=== PATIENT | male | born 1970 | race Caucasian/White ===

== ENCOUNTER 2020-06-10 08:34 | Outpatient (REF) | payer OTHER, SELFPAY | END 2020-06-10 08:35 | disposition home or self-care (01) | LOC: HO.LAB 08:34 | PROVIDERS: Visit Provider Internal Medicine | DX: Z20.822 Contact with and (suspected) exposure to COVID-19 (principal) | CPT/HCPCS: 36415; C9803; U0003 ==

== ENCOUNTER 2020-07-03 09:21 | Outpatient (REF) | payer OTHER, SELFPAY | END 2020-07-03 09:22 | disposition home or self-care (01) | LOC: HO.LAB 09:21 | PROVIDERS: Visit Provider Internal Medicine | DX: Z20.822 Contact with and (suspected) exposure to COVID-19 (principal) | CPT/HCPCS: 36415; C9803; U0003; U0005 ==

== ENCOUNTER 2021-02-26 08:25 | Emergency (ER) | payer OTHER, SELFPAY ==
[2021-02-26 08:29] VITALS: BP 167/93; PULSE 87; RESP 18; TEMP 36.8; O2SAT 99; BMI 22.7
[2021-02-26 09:15] LABS: COVID-19 Test Negative (Negative); IDNOW Serial# 9DD0AD1C; Strep A Nucleic Acid Negative (Negative)
--- NOTE | 2021-02-26 09:23 | ED.GENADULT ---
HPI - General Adult General Chief complaint: Upper Respiratory Symptoms Stated complaint: sore throat Time Seen by Provider: 02/26/21 08:35 Source: patient Mode of arrival: ambulatory Limitations: no limitations History of Present Illness HPI narrative: Patient presents to ED for sore throat and runny nose for 2 weeks. Patient denies any chest pain or shortness of breath. Patient states no fever and chills. Patient had 2 COVID swab that was negative. Related Data Allergies Allergy/AdvReac Type Severity Reaction Status Date / Time No Known Allergies Allergy Verified 02/26/21 08:31 Review of Systems Review of Systems: Yes all other systems are reviewed and are negative Constitutional: Constitutional: Reports as per HPI and Reports no additional constitutional complaints Eyes: Eyes: Reports as per HPI and Reports no additional eye complaints ENT: Reports system reviewed and no additional complaints, except as documented, Reports as per HPI, Reports nasal congestion and Reports sore throat Cardiovascular: Cardiovascular: Reports as per HPI and Reports no additional cardiovascular complaints Respiratory: Respiratory: Reports as per HPI and Reports no additional respiratory complaints Gastrointestinal: Gastrointestinal: Reports as per HPI and Reports no additional gastrointestinal complaints Genitourinary: Genitourinary: Reports no additional male genitourinary complaints and Reports as per HPI Musculoskeletal: Musculoskeletal: Reports no additional musculoskeletal complaints and Reports as per HPI Neurologic: Reports system reviewed and no additional complaints, except as documented and Reports as per HPI Psychiatric: Psychiatric: Reports no additional psychiatric complaints and Reports as per HPI [facility] Past Medical History Medical History (Updated 02/26/21 @ 09:31 by CHRISTIAN Giang) No known health problems Social History Social History Advance Directives: No Physical Exam Vital Signs: Vital Signs: Last Vital Signs Temp 98.3 F 02/26/21 08:29 Pulse 87 02/26/21 08:29 Resp 18 02/26/21 08:29 BP 167/93 H 02/26/21 08:29 Pulse Ox 99 02/26/21 08:29 Body Mass Index 22.7 Const: General: cooperative, healthy appearing, comfortable, no acute distress, well developed, alert, awake and Physically active Orientation/consciousness: patient oriented x3 HENMT: Head: Yes normal to inspection, Yes No palpable skull fracture present, Yes normocephalic and Yes atraumatic Ears: hearing grossly normal bilaterally, external ears normal, TM's normal bilaterally, EAC's normal, mastoids normal and no periauricular adenopathy General nose exam: Normal external nose present and Normal nares present Throat: Yes posterior oropharynx normal, Yes tonsils normal and Yes uvula midline Eyes: General: appearance normal, both eyes and all related structures Neck: Neck: Yes normal visual inspection, Yes full ROM, Yes no lymphadenopathy, Yes no meningeal signs, Yes trachea midline, Yes supple and No tender Chest: Chest palpation & inspection: normal inspection of the chest and normal palpation of entire chest wall Resp: Effort & Inspection: normal respiratory effort and able to speak in complete sentences Auscultation: clear to auscultation bilaterally Cardio: Jugular venous distension: no JVD Heart sounds: S1 normal heart sound present and S2 normal heart sound present GI: Inspection: Yes normal to inspection and No abdominal wall ecchymosis Palpation (GI): Soft to palpation, not firm, nontender, no guarding and not rigid : General: No CVA tenderness and Yes no CVA tenderness Back/Spine/Pelvis: Back: no CVA tenderness, No CVA tenderness and No back tenderness Skin: General skin exam: no rashes or lesions noted and elasticity normal Neuro: General: patient oriented x3, gait normal, no meningeal signs and CN's II-XI intact bilaterally Cranial nerves: Yes CN's II-XII intact bilaterally Extrem: General: Yes normal to inspection and Yes full ROM Psych: Appearance: grossly normal, well kempt and not disheveled Course Course Course Narrative: Patient have COVID swab and strep test. Reevaluation(s) Reevaluation #1: Strep test COVID swab came back negative. Diagnosis viral syndrome. Time: 09:29 Medical Decision Making [facility] Narrative Medical decision making narrative: Viral syndrome Lab Data Labs: Lab Results 02/26/21 02/26/21 Range/Units 08:55 08:55 COVID-19 (PER) Negative (Negative) COVID-19 Clin Com See Note S. pyogenes GrpA CELIA Negative (Negative) Discharge Plan Discharge Clinical Impression: Viral syndrome Patient Disposition: Home, Self-Care Instructions: Viral Syndrome (ED) Additional Instructions: Return to the ED immediately for any chest pain, shortness of breath, inability tolerate solid food/liquid, swelling of tongue, swelling of lips, intractable fever, chills, weakness, coughing up blood, abdominal pain, diarrhea, any other concerning symptoms. Please follow-up with your primary care provider. Your covid swab and strep test came back negative. Stand Alone Forms: Work/School Release Interventions: ED Discharge Assessment Last Done: 02/26/21 09:47 Discharge Date/Time: 02/26/21 09:47 Print Language: Frisian
== END 2021-02-26 09:47 | disposition home or self-care (01) ==
PROVIDERS: Emergency Provider Emergency Medicine
DX: B34.9 Viral infection, unspecified (principal); J02.8 Acute pharyngitis due to other specified organisms; Z20.822 Contact with and (suspected) exposure to COVID-19; Z79.899 Other long term (current) drug therapy
CPT/HCPCS: 36415; 87635; 87651; 99283

== ENCOUNTER 2021-04-14 08:22 | Emergency (ER) | payer OTHER, SELFPAY ==
[2021-04-14 08:26] VITALS: BP 175/91; PULSE 83; RESP 16; TEMP 36.6; O2SAT 100; BMI 23.0
--- NOTE | 2021-04-14 08:34 | ED_ITS ---
HPI - General Adult General Chief complaint: General Medical Stated complaint: diff swallowing Time Seen by Provider: 04/14/21 08:34 Source: patient Mode of arrival: ambulatory Limitations: no limitations History of Present Illness HPI narrative: Patient with sore throat and upper chest burning 2-3 weeks ago. He was seen in the ED and told he had an infection. Since that time the patient has the same symptoms. No fever, patient denies seasonal allergies. Onset (ago): week(s) Severity: mild Quality: burning Pain Consistency: constant Associated symptoms: denies other symptoms Related Data Allergies Allergy/AdvReac Type Severity Reaction Status Date / Time No Known Allergies Allergy Verified 02/26/21 08:31 Review of Systems Constitutional: Constitutional: Reports no additional constitutional complaints Eyes: Eyes: Reports no additional eye complaints ENT: Denies dizziness Cardiovascular: Cardiovascular: Reports no additional cardiovascular complaints Respiratory: Respiratory: Reports as per HPI Gastrointestinal: Gastrointestinal: Reports no additional gastrointestinal complaints Musculoskeletal: Musculoskeletal: Reports no additional musculoskeletal complaints Integumentary/Breasts: Skin/Breast: Denies rash Neurologic: Reports system reviewed and no additional complaints, except as documented, Denies dizziness and Denies Sensory deficit (Neuro) Psychiatric: Psychiatric: Denies anxiety [facility] Past Medical History Medical History No known health problems Social History Social History Advance Directives: No Physical Exam Vital Signs: Vital Signs: Last Vital Signs Temp 97.7 F 04/14/21 08:48 Pulse 77 04/14/21 08:48 Resp 18 04/14/21 08:48 BP 177/110 H 04/14/21 08:48 Pulse Ox 100 04/14/21 08:48 Body Mass Index 23.0 Const: General: healthy appearing Nutritional Appearance: average body habitus Orientation/consciousness: oriented to person and patient oriented x3 Limitations: no limitations HENMT: Other: uvula with apthous ulcer and on pharynx as well Head: Yes normal to inspection Ears: external ears normal General nose exam: Normal external nose present Throat: Yes posterior oropharynx normal Eyes: General: appearance normal, both eyes and all related structures Neck: Other: supple Neck: Yes normal visual inspection Chest: Chest palpation & inspection: normal inspection of the chest Resp: Auscultation: clear to auscultation bilaterally Cardio: Jugular venous distension: no JVD Rate: regular rate Rhythm: regular rhythm Heart sounds: S1 normal heart sound present and S2 normal heart sound present GI: Inspection: Yes normal to inspection Palpation (GI): Soft to palpation, nontender and No hepatosplenomegaly present Auscultation: normal bowel sounds : General: Yes no CVA tenderness Back/Spine/Pelvis: Back: no CVA tenderness Skin: General skin exam: no rashes or lesions noted Neuro: General: oriented to person and patient oriented x3 Cranial nerves: Yes CN's II-XII intact bilaterally Motor exam (neuro): 5/5 motor strength present throughout Sensory Exam: No Sensory deficit (Neuro) Extrem: General: Yes normal to inspection Psych: Appearance: grossly normal Course Reevaluation(s) Reevaluation #1: patient with viral pharyngitis will start gargles and dc home Time: 09:05 Discharge Plan Discharge Clinical Impression: Acute viral pharyngitis Patient Disposition: Home, Self-Care Instructions: Pharyngitis (ED) Additional Instructions: Salt water gargles alternating with half peroxide and half water gargle and spit Referrals: Physician,None [Primary Care Provider] - 1 week
[2021-04-14 08:48] VITALS: BP 177/110; PULSE 77; RESP 18; TEMP 36.5; O2SAT 100
[2021-04-14 09:14] VITALS: BP 183/105; PULSE 75; RESP 18; O2SAT 99
== END 2021-04-14 09:21 | disposition home or self-care (01) ==
PROVIDERS: Emergency Provider Emergency Medicine
DX: J02.8 Acute pharyngitis due to other specified organisms (principal)
CPT/HCPCS: 99283; 99284

== ENCOUNTER 2023-06-03 07:30 | Emergency (ER) | payer OTHER, SELFPAY ==
[2023-06-03 07:45] VITALS: BP 166/93; PULSE 96; RESP 18; TEMP 36.8; O2SAT 100; BMI 23.0
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
== END 2023-06-03 08:47 | disposition home or self-care (01) ==
PROVIDERS: Emergency Provider Student in an Organized Health Care Education/Training Program
DX: Z04.1 Encounter for examination and observation following transport accident (principal); M79.18 Myalgia, other site; M62.838 Other muscle spasm; M25.511 Pain in right shoulder
CPT/HCPCS: 99283

== ENCOUNTER 2024-07-04 00:03 | Emergency (ER) | payer OTHER, SELFPAY ==
--- OUTSIDE RECORDS SUMMARY | 2024-07-04 05:24 | XMS_ITS | Clinical Summary ---
Demographics Address [address] [place] [address] Home Phone Preferred Language Unknown Marital Status Unknown Church Affiliation Unknown Race White Ethnic Group or Author Organization [facility] Address [address] [place] [address] Care Team Providers Care Central Service Tech Name Role Phone Unavailable Primary Care Provider Unavailabl e Source Comments PLEASE NOTE, if this patient is a minor, it may be UNLAWFUL to discuss sensitive information that is contained in these records (such as FAMILY PLANNING, MENTAL HEALTH or SUBSTANCE ABUSE) with the minor patient's parent or other person without the patient's specific authorization.[facility] Immunizations Name Administration Dates Next Due Moderna COVID-19 Vaccine, re d cap blue label, 12+ Primary Series 10/12/2020,09/14/2020 Social History Tobacco Use Types Packs/Day Years Used Date Smoking Tobacco: Never Assessed Social Connections Answer Date Recorded Social Connections and Isolation 0 09/14/2020 Financial Resource Strain Answer Date R ecorded Financial Resource Strain 0 2020 Stress Answer Date Recorded Stress 0 09/14/2020 Physical Activity Answer Date Recorded Physical Activity 0 09/14/2020 Food Insecurity Answer Date Recorded Food 0 09/14/2020 Transportation Needs Answer Date Record ed Transportation 0 09/14/2020 Housing Stability Answer Date Recorded Housing 0 09/14/2020 Safety and Environment Answer Date Magdaleno rded Safety 0 09/14/2020 Utilities Answer Date Recorded Utilities 0 09/14/2020 Employment Answer Date Recorded Employment 0 09/14/2020 Sex and Gender Information Value Date Recorded Sex Assigned at Not on file Legal Sex Male 10:21 AM PDT Gender Identity Not on file Sexual Orientation Not on file Plan of Treatment Health Maintenance Due Date Last Done Comments Diabetes Screening 1968 Hepatitis C Screening 1968 Lipid Screening 1968 Tobacco Screening 1968 HIV Screening 1983 Annual Preventive Care Visit 1986 Hypertension Screening (#1) 1986 Imm-DTaP/Tdap/Td (1 - Tdap) 1987 Imm-Hepatitis B (1 of 3 - 19 + 3-dose series) 1987 CT Colonography 2013 Colonoscopy 2013 Colorectal Cancer Screening 2013 FIT/gFOBT 2013 Fecal DNA 2013 Flexible Sigmoidoscopy 2013 Imm-Zoster, Recombinant (1 of 2) 2018 Alcohol and Drug Screen 05/29/2023 Depression Annual Screen 05/29/2023 [id number] ( season) 2024 021, 09/14/2020 Imm-Influenza (#1) 2024 Insurance [facility]
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
== END 2024-07-04 08:12 | disposition home or self-care (01) ==
PROVIDERS: Emergency Provider Internal Medicine; PCP Internal Medicine
DX: M54.2 Cervicalgia (principal); M54.50 Low back pain, unspecified
CPT/HCPCS: 99283